=== PATIENT | female | born 1995 | race Two or more races ===

== ENCOUNTER 2024-07-01 02:47 | Emergency (ER) | payer OTHER, SELFPAY ==
[2024-07-01 02:48] VITALS: BP 154/98; PULSE 128; RESP 18; TEMP 36.7; O2SAT 98; BMI 43.9
[2024-07-01 07:51] VITALS: BP 141/85; PULSE 100; RESP 14; TEMP 36.7; O2SAT 100
--- NOTE | 2024-07-01 08:12 | ED_ITS ---
HPI - Animal Bite General Chief Complaint: Animal Bite Stated Complaint: right wrist puncture Time Seen by Provider: 07/01/24 07:52 Source: patient Mode of arrival: ambulatory Limitations: no limitations History of Present Illness HPI narrative: This is a very pleasant 29 years old patient presented to the emergency department complaining of right wrist dog bite since yesterday. Denies any fever chills. She is right-handed she has no comorbidity. Dog has been vaccinated patient knows the optometrist/practice owner of the dog MD complaint: animal bite Onset (ago): day(s) (1) Animal: dog Mechanism: bite Related Data Patient tetanus UTD: No Previous Rx's ?Medication ?Instructions ?Recorded amoxicillin 875 mg-potassium 1 tab PO BID #14 tabs 07/01/24 clavulanate 125 mg tablet Allergies Allergy/AdvReac Type Severity Reaction Status Date / Time No Known Allergies Allergy Verified 07/01/24 02:51 Review of Systems Constitutional: Constitutional: Reports no additional constitutional complaints Cardiovascular: Cardiovascular: Reports no additional cardiovascular complaints Musculoskeletal: Musculoskeletal: Reports no additional musculoskeletal complaints [facility] Past Medical History [facility] Narrative: Denies past medical history Social History Social History Advance Directives: No Advance Directives Information Provided: Yes Do you have a plan to hurt others: No Plan Physical Exam ED Vital Signs: Vital Signs - 24 hr 07/01/24 02:48 07/01/24 07:51 07/01/24 08:52 Temperature 98.0 F 98.0 F 98.0 F Pulse Rate 128 H 100 100 Respiratory Rate 18 14 14 Blood Pressure 154/98 H 141/85 H 141/85 H Pulse Oximetry 98 100 100 Oxygen Delivery Method Room Air Room Air Room Air BMI result Body Mass Index 43.9 She looks well she is not toxic-appearing Const Orientation/consciousness: oriented to person and patient oriented x3 HENMT Other: Examination of the head eyes nose mouth throat within normal limit Mouth: Normal oral and palatal mucosa present Throat: Yes posterior oropharynx normal Neck Neck: Yes normal visual inspection Chest Chest palpation & inspection: normal inspection of the chest Resp Effort & Inspection: normal respiratory effort Auscultation: clear to auscultation bilaterally Cardio Jugular venous distension: no JVD Rate: regular rate Rhythm: regular rhythm GI Inspection: Yes normal to inspection Palpation (GI): Soft to palpation, not firm and nontender Auscultation: normal bowel sounds Neuro General: oriented to person and patient oriented x3 Cranial nerves: Yes CN's II-XII intact bilaterally Extrem Other: Examination of the right wrist showed superficial abrasion in the radial aspect of the wrist range of motion of the wrist she has full range of motion of the hand is full pulses are palpable General: Yes normal to inspection Right upper extremity: normal to inspection Right lower extremity: normal to inspection Medications Administered Discontinued Medications Generic Name Dose Route Start Last Admin Trade Name Freq PRN Reason Stop Dose Admin Amoxicillin/Clavulanate Potassium 875 mg 07/01/24 08:12 07/01/24 08:15 Amoxicillin/Potassium Clav 875 Mg Tablet PO 07/01/24 08:13 875 mg ONCE ONE Administration Diphtheria/Tetanus/Acell Pertussis 0.5 ml 07/01/24 08:18 07/01/24 08:46 Diphth,Pertus(Acell),Tet Adult 0.5 Ml Syringe IM 07/01/24 08:19 0.5 ml .ONCE ONE Administration Medical Decision Making Medical Decision Making [facility] Narrative: Patient presented with a dog bite we will go ahead cleaned the wound, administer prophylaxis antibiotic and tetanus Differential Diagnosis Differential Diagnoses: The differential diagnosis associated with the presentation includes Dog bite/superficial abrasion Admission/Observation Consideration of admission/observation: Escalation of care including admission/observation considered Discharge Plan Discharge Clinical Impression: Dog bite Patient Disposition: Home, Self-Care Instructions: Animal Bite (ED) Additional Instructions: Follow-up with your primary care physician, we sent a prescription for you to the [facility] pharmacy, return to the emergency room if you worse if you have a fever Prescriptions: New amoxicillin-pot clavulanate 875-125 mg tablet 1 tab PO BID Qty: 14 0RF Interventions: ED Discharge Assessment Last Done: 07/01/24 08:52 Discharge Date/Time: 07/01/24 08:52 Print Language: [place]uran
[2024-07-01] MEDS: Amoxicillin/Potassium Clav 875 MG TABLET PO (08:15)
--- NOTE | 2024-07-01 08:40 | PC.NURSE ---
DOG BITE SITE WAS CLEANED AND A DSD WAS PLACED NO ACTIVE BLEEDING NOTED, SHE WAS MEDICATED CHARTED, AND PLAN IS FOR DISCHARGE
[2024-07-01] MEDS: Diphth,Pertus(ACell),Tet Adult 0.5 ML SYRINGE IM (08:46)
[2024-07-01 08:52] VITALS: BP 141/85; PULSE 100; RESP 14; TEMP 36.7; O2SAT 100
== END 2024-07-01 08:52 | disposition home or self-care (01) ==
PROVIDERS: Emergency Provider Emergency Medicine
DX: S60.871A Other superficial bite of right wrist, initial encounter (principal); W54.0XXA Bitten by dog, initial encounter; Y93.89 Activity, other specified; Y92.89 Other specified places as the place of occurrence of the external cause; Y99.8 Other external cause status; Z23 Encounter for immunization
CPT/HCPCS: 90471; 90715; 99283; 99284